=== PATIENT | female | born 1985 | race Caucasian/White ===

== ENCOUNTER 2017-04-16 17:33 | Emergency (ER) | payer MEDICAID ==
[~2017-04-16] VITALS: Ht 157.5 cm; Wt 61.0 kg
[~2017-04-16 17:33] MED LIST: AZIT250T94 PO; FLUC150T17 PO; IBUP-1542 PO; MICO24CM3 VAG; P-EP1CAP3 PO; PREN1TAB67 PO
[2017-04-16 17:34] VITALS: Ht 157.5 cm; Wt 61.0 kg
[2017-04-16] MEDS ORDERED: KETOROLAC 30 MG INJ IV STA (17:54)
[2017-04-16] MEDS ORDERED: DIPHENHYDRAMINE 50 MG INJ IV ONE (18:00)
[2017-04-16] MEDS ORDERED: SOD CHLORIDE 0.9% 1,000 ML IV ONE (18:00)
[2017-04-16] MEDS ORDERED: METOCLOPRAMIDE 10 MG INJ IV ONE (18:00)
[2017-04-16] MEDS ORDERED: FIORICET PO (19:29)
--- NOTE | 2017-04-16 19:53 | ERD ---
ER Documentation Chief Complaint Date/Time DATE: 04/16/17 TIME: 19:48 Chief Complaint PT with BLEVINS and nausea X 2 days. HPI 31-year-old female patient with no significant past medical history presents the ED complaining of headache, nausea, slight dizziness that started 2 days ago. Reports that the dizziness is worse when she turns her head. Since that it is intermittent. Reports that her headache is worse with loud noises. Reports that she has photophobia. Denies any vision loss, vomiting, diarrhea, chest pain, shortness of breath, abdominal pain, dysuria, urgency, frequency. Denies any head trauma. ROS All systems reviewed and are negative except as per history of present illness. Medications Home Meds Active Scripts Acetamin/Butalbital/Caffeine* (Fioricet*) [id number] Tab, 1 TAB PO Q6H Y for PAIN, #30 TAB Prov:ANTWAN ERIC PA-C 04/16/17 P-Ephed Hcl/Acetaminophen (Sudafed Sinus & Cold Capsule) 1 Cap Capsule, 1 CAP PO DAILY for 4 Days, CAP Prov:DHIRAJ CORMIER NP 06/17/15 Azithromycin* (Zithromax*) 250 Mg Tablet, 250 MG PO .ZPACK DIRECTED, #6 TAB TAKE 500 MG (2 TABS) THE FIRST DAY THEN 250 MG (1 TAB) DAYS 2-5 Prov:DHIRAJ CORMIER NP 06/17/15 Ibuprofen* (Motrin*) 600 Mg Tab, 600 MG PO Q6, #30 TAB Prov:KOBY BERNAL 05/11/15 Miconazole Nitrate* (Monistat 3*) 24 Gm Cmb.pf.crm, 1 APPFUL VAG HS for 3 Days, TUB X 3 Prov:KOBY BERNAL C 05/11/15 Fluconazole* (Diflucan*) 150 Mg Tablet, 150 MG PO ONCE, #1 TAB Prov:DOLORESKOBY LOCKE C 05/11/15 Reported Medications Vits W-Ca,Fe,Fa(<1MG) ( Formula) 1 Each Tablet, 1 EACH PO DAILY 12/24/13 Allergies Allergies: Coded Allergies: No Known Allergy (Unverified , 12/24/13) PMhx/Soc Medical and Surgical Hx: pt denies Medical Hx, pt denies Surgical Hx History of Surgery: No Anesthesia Reaction: No Hx Neurological Disorder: No Hx Respiratory Disorders: No Hx Cardiac Disorders: No Hx Psychiatric Problems: No Hx Miscellaneous Medical Probl: No Hx Alcohol Use: No Hx Substance Use: No Hx Tobacco Use: No Smoking Status: Never smoker Physical Exam Vitals Vital Signs Date Time Temp Pulse Resp B/P Pulse Ox O2 Delivery O2 Flow Rate FiO2 04/16/17 17:34 98.8 73 18 119/74 99 Physical Exam Const: [id number]-ass-afetljdth, well-nourished. In no acute distress. Head: Atraumatic, normocephalic Eyes: Normal Conjunctiva without injection. No purulent discharge. PERRLA. EOMI ENT: Normal external ear. Ear canal without erythema. Tympanic membrane pearly elizabeth without effusion or bulging. Nasal canal clear with normal turbinates. Moist oropharynx without tonsillar exudates. Non-erythematous pharynx. Uvula midline. No drooling. No trismus. Neck: No cervical midline tenderness. Full range of motion. No meningismus. No cervical lymphadenopathy. No JVD. Resp: Clear to auscultation bilaterally. No wheezing, rhonchi, rales, or crackles. No accessory muscle use. No retractions. Cardio: Regular rate and rhythm. No murmurs, rubs or gallops. Abd: Soft, non tender, non distended. Normal bowel sounds. No palpable masses. No rebound tenderness. No guarding. Negative McBurney's Point. Negative Jacobs's Sign. Skin: Normal skin turgor. No petechiae or rashes Back: No midline tenderness. No CVA tenderness. Ext: No cyanosis, or edema. Distal pulses intact bilaterally. Neur: Awake and alert. Normal gait. Normal coordination. Cranial Nerves II- VII intact. Normal finger to nose. Muscle strength 5/5. Sensation intact. Psych: Normal Mood and Affect Results 24 hrs Current Medications Medications (Trade) Dose Ordered Sig/Lana Route PRN Reason Start Time Stop Time Status Last Admin Dose Admin Sodium Chloride (NS) 1,000 ml @ 1,000 mls/hr Q1H ONCE IV 04/16/17 18:00 04/16/17 18:59 DC 04/16/17 18:56 Diphenhydramine HCl (Benadryl) 25 mg ONCE ONCE IV 04/16/17 18:00 04/16/17 18:01 DC 04/16/17 18:55 Metoclopramide HCl (Reglan) 10 mg ONCE ONCE IV 04/16/17 18:00 04/16/17 18:01 DC 04/16/17 18:54 Ketorolac Tromethamine (Toradol) 30 mg ONCE STAT IV 04/16/17 17:54 04/16/17 17:56 DC 04/16/17 18:54 Procedures/MDM This is a 31-year-old female patient with no significant past medical history presents to the ED complaining of headache, nausea that started 2 days ago. Patient is afebrile and nontoxic-appearing. Patient has normal vital signs. Patient was treated here in the ED with 1 L of normal saline, Toradol, Benadryl , Reglan. Reports that her headache has improved. Patient is ambulating without difficulty. Differentials include migraine headaches vs. tension headaches. There is low suspicion for intracranial bleed, sinusitis, cardiac dysrhythmias, Brugada Syndrome, WPW syndrome, cavernous sinus thrombosis, cerebral venous sinus thrombosis, benign positional vertigo, subarachnoid hemorrhage, meningitis, TIA, stroke, subdural hematoma, epidural hematoma, or other emergent conditions. Discharge medications: Fioricet Follow up with primary care physician in 1-2 days. Instructed patient to return to the ED sooner for any worsening symptoms. Patient's questions were answered. Patient understood and agreed with discharge plan. Patient discharged stable. Departure Diagnosis: Primary Impression: Headache Headache type: unspecified Headache chronicity pattern: unspecified pattern Intractability: not intractable Qualified Code: R51 - Nonintractable headache, unspecified chronicity pattern, unspecified headache type Condition: Stable Patient Instructions: Headache, Migraine (Classical) Referrals: [facility] Usted se blevins hecho un examen mdico de control que le indica que no est en chris condicin que requiera tratamiento urgente en el Departamento de Emergencia. Un estudio ms profundo y el tratamiento de busch condicin pueden esperar sin ningn riesgo hasta que usted sea atendida/o en el consultorio de busch mdico o chris cl fidencio. Es responsabilidad suya arreglar chris yvonne para el seguimiento del sofia. MANEJO DE CONDICIONES NO URGENTES EN EL FUTURO 1) Si usted tiene un mdico de atencin primaria: Usted debera llamar a busch mdico de atencin primaria antes de venir al departamento de emergencia. Despus de las horas de consultorio, busch doctor o busch asociado/a est disponible por telfono. El mdico o enfermero de ernst en el servicio telefnico puede asesorarle por abdoul medio para atender el problema, o sofia contrario se puede programar chris yvonne. 2) Si usted no tiene un mdico de atencin primaria: Llame al mdico o clnica de referencia que aparece abajo rob las horas de consultorio para hacer chris yvonne para que le vean. CLINICAS: [place] [id number] [phone] [facility] [phone] [address] [facility] [phone] [facility] [facility] [phone] [facility] [place] [id number] [phone] [facility] [phone] [address] [facility] () Marianela se blevins hecho un examen mdico de control que le indica que no est en chris condicin que requiera tratamiento urgente en el Departamento de Emergencia. Un estudio ms profundo y el tratamiento de busch condicin pueden esperar sin ningn riesgo hasta que usted sea atendida/o en el consultorio de busch mdico o chris cl fidencio. Es responsabilidad suya arreglar chris yvonne para el seguimiento del sofia. MANEJO DE CONDICIONES NO URGENTES EN EL FUTURO 1) Si usted tiene un mdico de atencin primaria: Usted debera llamar a busch mdico de atencin primaria antes de venir al departamento de emergencia. Despus de las horas de consultorio, busch doctor o busch asociado/a est disponible por telfono. El mdico o enfermero de ernst en el servicio telefnico puede asesorarle por abdoul medio para atender el problema, o sofia contrario se puede programar chris yvonne. 2) Si usted no tiene un mdico de atencin primaria: Llame al mdico o condado institucions de referencia que aparece abajo rob las horas de consultorio para hacer chris yvonne para que le vean. SI USTED NO PUEDE PAGAR PARA DEMARCO UN MEDICO puede ir a: [facility] [id number] [place], [place] [id number] [place] [address] [address] [place] [address] [facility] [address] [place] [address] [facility] [address] [place], [place] [id number] Additional Instructions: Llame al doctor MAANA y flo chris YVONNE PARA DENTRO DE 1-2 JASON.Dgale a la secretaria que nosotros le instruimos hacer esta yvonne.Avise o llame si busch condicin se empeora antes de la yvonne. Regresa aqui si peor o no mejor. ANTWAN ERIC PA-C Apr 16, 2017 19:53
== END 2017-04-16 20:00 | disposition home or self-care (01) ==
LOC: FTE 17:33
DX: R51 Headache (principal)
CPT/HCPCS: 96374; 96375; J1200; J1885; J2765; J7030; Z7502

== ENCOUNTER 2019-04-14 16:43 | Emergency (ER) | payer MEDICAID ==
[~2019-04-14] VITALS: Ht 157.5 cm; Wt 64.6 kg
[~2019-04-14 16:43] MED LIST changes: +ALBU18HF INHALATION; +AZIT250T PO; -AZIT250T94 PO; +BUTA1CAP38 PO; +FIORICET PO; +FLUC150T PO; -FLUC150T17 PO; +PRED20TA PO
[2019-04-14 18:04] VITALS: Ht 157.5 cm; Wt 64.6 kg
[2019-04-14] MEDS ORDERED: KETOROLAC 30 MG INJ IM STA (19:11)
[2019-04-14 20:00] VITALS: BP 119/75; PULSE 64; RESP 18
== END 2019-04-14 20:00 | disposition home or self-care (01) ==
LOC: FTE 16:43
DX: R51 Headache (principal)
CPT/HCPCS: 81003; 81025; 96372; J1885; Z7502